=== PATIENT | male | born 1975 | race Caucasian/White ===

== ENCOUNTER → 2023-09-11 | Outpatient (CLI) | payer BC ==
--- NOTE | 2023-09-17 22:16 | P.PCN ---
Date of Procedure: 09/11/23 Operative Findings: Home sleep study report Date of services 09/11/2023 Pertinent history This patient has history of severe obstructive sleep apnea with an AHI of 36 and the patient was being treated with a CPAP pressure of 6.5 cm of water. The patient has an older generation [employer]-AirSage CPAP unit and was also utilizing a Mirage fx nasal mask. The patient was seen in the office and he was still having ongoing symptoms of obstructive sleep apnea. Home sleep study was ordered to evaluate the patient's condition. He was also interested in updating his CPAP machine Pertinent physical findings The patient has a weight of 200 pounds, height is 511 and a body mass index of 27.9 Technical description This is a type III home sleep study. The V[employer] apnea link system was used to conduct this home sleep study. The total recording duration was 8 hours and 48 minutes. The study started at 10:26 PM and ended at 7:13 AM. The patient more than 8 hours of flow and oxygen saturation monitoring and there is such this was an adequate sleep study. Results The respiratory analysis showed a total of 12 obstructive apneas and a total 120 obstructive hypopneas and the resulting AHI was 15.5, worse in the supine body position. AHI was supine was 24.3 Oxygenation analysis The patient had a total of 122 oxygen saturation with a pulse ox of a more than 4%. Average pulse ox during sleep was 93%. Based on pulse ox 1 awake was 97% and the patient's minimum pulse ox was 84%. Cardiac summary Average heart rate was 70 with a minimum heart rate of 55 and a maximum heart rate of 200 Assessment IHSAN moderate to severe with an AHI of 15.5, worse in the supine body position Chronic hypersomnia Plan I am going to offer the patient a new generation ResMed 11 and the patient will be sent to the pressures of 5/15 cm of water on APAP mode. The patient will be offered a alternative mask which will be an AirFit N20 nasal mask. The patient was seen back in 30 to 90 days after obtaining his new machine for a compliancy check and further adjustments will be made accordingly.
== END ==
LOC: 3 N SLEEP 16:35
PROVIDERS: ATTEND Internal Medicine Critical Care Medicine
DX: G47.33 Obstructive sleep apnea (adult) (pediatric) (principal); G47.10 Hypersomnia, unspecified; G47.36 Sleep related hypoventilation in conditions classified elsewhere